=== PATIENT | female | born 1985 | race Caucasian/White ===

== ENCOUNTER 2017-05-04 09:58 | Emergency (ER) | payer OTHER ==
[2017-05-04 09:59] VITALS: BMI 27.3
[2017-05-04 10:40] VITALS: RESP 18; TEMP 98.8
[2017-05-04 12:37] VITALS: BP 116/72; PULSE 76; O2SAT 100
--- NOTE | 2017-05-04 13:24 | ED PDOC ---
Arrival/HPI - General Chief Complaint: Allergic Reaction Time Seen by Provider: 05/04/17 11:06 Historian: Patient - History of Present Illness Narrative History of Present Illness (Text): 05/04/17 12:32 32-year-old female presents today with rash to the left arm and thighs and lower abdomen bilaterally. Patient states rash started last night. Patient denies new soaps lotions or detergents or perfumes. pt denies cp or sob. no vomiting/diarrhea. no abdominal pain. pt states she developed nasal congestion last night. pt states last night she developed red itchy rash to left arm and abdomen. states she took a vistaril last night with some improvement. no other complaints . Time/Duration: Other (last night) Past Medical History - Provider Review Nursing Documentation Reviewed: Yes - Travel History Have you recently traveled outside [place] w/in the past 3 mons?: No - Infectious Disease Hx of Infectious Diseases: None - Tetanus Immunization Tetanus Immunization: Up to Date - Reproductive Menopause: No - Past Medical History Past Medical History: No Previous - Psychiatric Hx Substance Use: No - Past Surgical History Past Surgical History: No Previous - Suicidal Assessment Feels Threatened In Home Enviroment: No Family/Social History - Physician Review Nursing Documentation Reviewed: Yes Family/Social History: Unknown Family HX Smoking Status: Never Smoked Hx Alcohol Use: No Hx Substance Use: No Hx Substance Use Treatment: No Allergies/Home Meds Allergies/Adverse Reactions: Allergies No Known Allergies Allergy (Verified 05/04/17 10:40) Review of Systems - Review of Systems Constitutional: absent: Fatigue, Fevers Respiratory: absent: SOB, Cough Cardiovascular: absent: Chest Pain, Palpitations Gastrointestinal: absent: Abdominal Pain, Nausea, Vomiting Genitourinary Female: absent: Dysuria Musculoskeletal: absent: Arthralgias, Back Pain, Neck Pain Skin: Rash, Pruritis Neurological: absent: Headache, Dizziness Psychiatric: absent: Anxiety, Depression, Suicidal Ideation Physical Exam Vital Signs Reviewed: Yes Vital Signs Temp Pulse Resp BP Pulse Ox 05/04/17 10:35 98.8 F 94 H 18 128/89 99 Temperature: Afebrile Blood Pressure: Normal Pulse: Regular Respiratory Rate: Normal Appearance: Positive for: Well-Appearing, Non-Toxic, Comfortable Pain Distress: None Mental Status: Positive for: Alert and Oriented X 3 - Systems Exam Head: Present: Atraumatic Mouth: Present: Moist Mucous Membranes Neck: Present: Normal Range of Motion Respiratory/Chest: Present: Clear to Auscultation, Good Air Exchange. No: Respiratory Distress, Accessory Muscle Use Cardiovascular: Present: Regular Rate and Rhythm, Normal S1, S2. No: Murmurs Abdomen: No: Tenderness Upper Extremity: Present: Normal ROM. No: Tenderness Lower Extremity: Present: Normal ROM Neurological: Present: GCS=15, Speech Normal Skin: Present: Warm, Dry, Rashes (multiple erythematous raised plaques noted to left volar forearm and b/l thighs and lower abdomen/hips.) Psychiatric: Present: Alert, Oriented x 3 Medical Decision Making ED Course and Treatment: Patient is nontoxic well-appearing in no distress with stable vital signs no angioedema. Lungs are clear to auscultation bilaterally there is no wheezing noted. The airway is patent Benadryl 25mg po Prednisone 60mg PO Pepcid 20 mg po Patient reassessment: After medications patient is feeling better. wants to go home. the airway is patent the patient is speaking in full sentences. I advised taking Benadryl every 6 hours as needed for itch as well as prednisone daily x4 days. Advised patient to follow up with primary care physician and production leader within the next 2 days and return if symptoms worsen persist or if new symptoms develop Patient verbalizes understanding of discharge instructions and need for immediate followup. all aspects of this case were discussed the attending of record. Impression :Allergic reaction Benadryl every 6 hours as needed for itch Prednisone once daily x4 days Pepcid one tablet daily Follow up with the primary care physician tomorrow follow up with the production leader Return if symptoms worsen persist or if new symptoms develop: Shortness of breath, feeling of throat closing, difficulty speaking or any other concerning symptoms develop - Medication Orders Current Medication Orders: Discontinued Medications Diphenhydramine HCl (Benadryl) 25 mg PO ONCE ONE Stop: 05/04/17 11:36 Last Admin: 05/04/17 12:09 Dose: 25 mg Famotidine (Pepcid) 20 mg PO STAT STA Stop: 05/04/17 11:36 Last Admin: 05/04/17 12:09 Dose: 20 mg Prednisone (Prednisone Tab) 60 mg PO STAT ONE Stop: 05/04/17 11:36 Last Admin: 05/04/17 12:09 Dose: 60 mg Disposition/Present on Arrival - Present on Arrival Any Indicators Present on Arrival: No History of DVT/PE: No History of Uncontrolled Diabetes: No Urinary Catheter: No History of Decub. Ulcer: No History Surgical Site Infection Following: None - Disposition Have Diagnosis and Disposition been Completed?: Yes Diagnosis: Allergic reaction, Rash Disposition: HOME/ ROUTINE Disposition Time: 12:30 Patient Plan: Discharge Condition: GOOD Discharge Instructions (ExitCare): Acute Rash (ED), General Allergic Reaction ( ED) Additional Instructions: Benadryl every 6 hours as needed for itch Prednisone once daily x4 days Pepcid one tablet daily Follow up with the primary care physician tomorrow follow up with the production leader Return if symptoms worsen persist or if new symptoms develop: Shortness of breath, feeling of throat closing, difficulty speaking or any other concerning symptoms develop Prescriptions: DiphenhydrAMINE [Benadryl] 25 mg PO Q6H #20 cap Famotidine [Pepcid] 20 mg PO DAILY #30 tab predniSONE [predniSONE Tab] 2 tab PO DAILY #8 tab Referrals: Kishan Brito MD [Staff Provider] - Follow up with primary Moris Roca MD [Staff Provider] - Follow up with primary Forms: [facility] ([place]), WORK NOTE
== END 2017-05-04 12:37 | disposition home or self-care (01) ==
LOC: ED 09:58
DX: T78.49XA Other allergy, initial encounter (principal); X58.XXXA Exposure to other specified factors, initial encounter